=== PATIENT | female | born 1950 | race Caucasian/White ===

== ENCOUNTER 2017-08-08 16:36 | Emergency (ER) | payer OTHER ==
[~2017-08-08] VITALS: Ht 154.9 cm; Wt 65.5 kg
[~2017-08-08 16:36] MED LIST: AMOXICILLIN500 M1 PO; ASPIRIN E.C.81 M1 PO; CALCIUM CARBON600 M1 PO; CLARINEX5 MG PO; DAILY VITAMIN1 EAC8 PO; HYGROTON25 MG PO; K-DUR20 MEQ PO; LIPITOR80 MG PO; LOW DOSE ASPIRI81 M1 PO; Lasix PO; NORVASC10 MG PO; NORVASC2.5 MG PO; NP THYROID60 MG PO; OCUVITE TABLET1 EACH PO; PLAVIX75 MG PO; TEKTURNA300 MG PO; THERAGRAN1 TABLET PO; THYROID PO; TOPROL XL50 MG PO; Thyroid PO; Toprol XL PO; VITAMIN D-32000 UNI1 PO; VITAMIN D1000 INTUN PO; WELCHOL625 MG PO; ZYLOPRIM100 MG PO
[2017-08-08 19:46] VITALS: BP 164/79
== END 2017-08-08 19:46 | disposition left against medical advice (07) ==
LOC: EME 16:36
DX: S40.022A Contusion of left upper arm, initial encounter (principal); S13.9XXA Sprain of joints and ligaments of unspecified parts of neck, initial encounter; W19.XXXA Unspecified fall, initial encounter; I63.9 Cerebral infarction, unspecified; H53.8 Other visual disturbances; R29.6 Repeated falls; Z53.29 Procedure and treatment not carried out because of patient's decision for other reasons; Z28.21 Immunization not carried out because of patient refusal; M50.323 Other cervical disc degeneration at C6-C7 level; I12.9 Hypertensive chronic kidney disease with stage 1 through stage 4 chronic kidney disease, or unspecified chronic kidney disease; N18.9 Chronic kidney disease, unspecified; Z95.5 Presence of coronary angioplasty implant and graft; Z85.3 Personal history of malignant neoplasm of breast; Z79.82 Long term (current) use of aspirin
CPT/HCPCS: 70450; 72125; 73080; 99281; 99284

== ENCOUNTER → 2018-05-14 | Outpatient (CLI) | payer MEDICARE, OTHER ==
[~2018-05-14] MED LIST changes: +ALLOPURINOL100 MG PO; +AMITRIPTYLINE H10 MG PO; +AMLODIPINE BES2.5 MG PO; +APRESOLINE50 MG PO; +BENICAR40 MG PO; +CITRACAL + D E1 EACH PO; +CYCLOBENZAPRINE10 MG PO; +FLAX SEED OIL1 EACH PO; +LOSARTAN POTAS100 MG PO; +OLMESARTAN MEDO40 MG PO; +VITAMIN B-6100 MG PO; -VITAMIN D-32000 UNI1 PO; +VITAMIN D2000 UNI1 PO
== END | disposition home or self-care (01) ==
LOC: CDC 09:37
DX: Z01.810 Encounter for preprocedural cardiovascular examination (principal); I44.0 Atrioventricular block, first degree; R94.31 Abnormal electrocardiogram [ECG] [EKG]
CPT/HCPCS: 93000

== ENCOUNTER 2018-05-20 05:33 | Day surgery (SDC) | payer OTHER ==
[~2018-05-20] VITALS: Ht 157.5 cm; Wt 61.2 kg
[2018-05-20] MEDS ORDERED: FLONASE16 G1 BOTH NARES (06:28)
[2018-05-20 06:36] VITALS: BP 165/76
[2018-05-20] MEDS ORDERED: REPATHA SY140 MG/1 M SC (06:42)
[2018-05-20 10:25] VITALS: BP 198/87
[2018-05-20 11:25] VITALS: BP 185/83
== END 2018-05-20 11:39 | disposition home or self-care (01) ==
LOC: SDC
PROC: 0JH60WZ Insertion of Totally Implantable Vascular Access Device into Chest Subcutaneous Tissue and Fascia, Open Approach (ICD-10-PCS; principal; 2018-05-20)
DX: Z45.2 Encounter for adjustment and management of vascular access device (principal); M32.9 Systemic lupus erythematosus, unspecified; I87.2 Venous insufficiency (chronic) (peripheral); E03.9 Hypothyroidism, unspecified; I12.9 Hypertensive chronic kidney disease with stage 1 through stage 4 chronic kidney disease, or unspecified chronic kidney disease; N18.3 Chronic kidney disease, stage 3 (moderate); R94.31 Abnormal electrocardiogram [ECG] [EKG]; Z79.82 Long term (current) use of aspirin; Z88.6 Allergy status to analgesic agent; Z88.1 Allergy status to other antibiotic agents; Z88.5 Allergy status to narcotic agent; Z88.8 Allergy status to other drugs, medicaments and biological substances; Z86.73 Personal history of transient ischemic attack (TIA), and cerebral infarction without residual deficits; Z88.0 Allergy status to penicillin; I25.2 Old myocardial infarction; Z90.5 Acquired absence of kidney
CPT/HCPCS: 71045; C1751; J0690; J3010